=== PATIENT | female | born 1985 | race African-American/Black ===

== ENCOUNTER 2016-08-29 18:28 | Emergency (ER) | payer OTHER ==
[~2016-08-29] VITALS: Ht 157.5 cm; Wt 60.0 kg
[2016-08-29 18:32] VITALS: Ht 157.5 cm; Wt 60.0 kg
[2016-08-29] MEDS ORDERED: IBUP-1542 PO (18:38)
[2016-08-29] MEDS ORDERED: CLIN-73 PO (18:38)
[2016-08-29] MEDS ORDERED: HYDR-906 PO (18:41)
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
== END 2016-08-29 18:45 | disposition home or self-care (01) ==
LOC: E/R 18:28
DX: S01.531A Puncture wound without foreign body of lip, initial encounter (principal); L08.9 Local infection of the skin and subcutaneous tissue, unspecified; Y04.0XXA Assault by unarmed brawl or fight, initial encounter; Y92.9 Unspecified place or not applicable
CPT/HCPCS: 99284